=== PATIENT | female | born 1985 | race Two or more races ===

== ENCOUNTER 2016-06-15 10:28 | Emergency (ER) | payer SELFPAY ==
[~2016-06-15] VITALS: Ht 160 cm; Wt 86.2 kg
[2016-06-15 11:05] VITALS: BP 124/69
[2016-06-15] MEDS ORDERED: AMOX500C PO (11:47)
[2016-06-15] MEDS ORDERED: HYDR-971 PO (11:47)
--- NOTE | 2016-06-15 11:48 | PHYS DOC ---
Past Medical History Past Medical History: No Pertinent History Past Surgical History: Additional Information: 1 PACK/DAY Alcohol Use: None Drug Use: None Adult General Chief Complaint Chief Complaint: DENTAL PROBLEM HPI HPI Patient is a 30 year old female presents emergency department stating that she is having left lower dental pain for the last 3-4 days. She's been taken ibuprofen for pain and discomfort with minimal relief. She denies any fever, chills or any nausea vomiting. She denies any dentist. She does state that the pain radiates up into her left ear. She denies any difficulty with hearing. Review of Systems Review of Systems Constitutional: Denies fever or chills [] Eyes: Denies change in visual acuity, redness, or eye pain [] HENT: Denies nasal congestion or sore throat. Complaint of dental pain. Respiratory: Denies cough or shortness of breath [] Cardiovascular: No additional information not addressed in HPI [] GI: Denies abdominal pain, nausea, vomiting, bloody stools or diarrhea [] : Denies dysuria or hematuria [] Musculoskeletal: Denies back pain or joint pain [] Integument: Denies rash or skin lesions [] Neurologic: Denies headache, focal weakness or sensory changes [] Allergies Allergies Allergies Coded Allergies Type Severity Reaction Last Updated Verified No Known Drug Allergies 06/15/16 No Physical Exam Physical Exam Constitutional: Well developed, well nourished, no acute distress, non-toxic appearance. [] HENT: Normocephalic, atraumatic, bilateral external ears normal, oropharynx moist, no oral exudates, nose normal. Bilateral tympanic membranes appear to be normal. It with no erythematous or drainage noted. Patient was noted to have tenderness at the #19 or 20 tooth. Appears to have tenderness along the gumline which is very red and swollen. No drainage noted from the site. Eyes: PERRLA, EOMI, conjunctiva normal, no discharge. [] Neck: Normal range of motion, no tenderness, supple, no stridor. [] Cardiovascular:Heart rate regular rhythm, no murmur [] Lungs & Thorax: Bilateral breath sounds clear to auscultation [] Skin: Warm, dry, no erythema, no rash. [] Back: No tenderness Extremities: No tenderness, no cyanosis, no clubbing, ROM intact, no edema. [] Neurologic: Alert and oriented X 3, normal motor function, normal sensory function, no focal deficits noted. [] Psychologic: Affect normal, judgement normal, mood normal. [] Current Patient Data Vital Signs Vital Signs Date Time Temp Pulse Resp B/P Pulse Ox O2 Delivery O2 Flow Rate FiO2 06/15/16 11:05 98.1 63 18 98 Room Air 98.1 EKG EKG [] Radiology/Procedures Radiology/Procedures [] Course & Med Decision Making Course & Med Decision Making Pertinent Labs and Imaging studies reviewed. (See chart for details) Patient will be placed on amoxicillin 500 mg twice a day for the next 10 days. She was recommended to continue using ibuprofen. She'll be provided with [place] for the next 2 days. Patient was provided with signs and symptoms to return back to emergency department with a she'll also be encouraged to follow-up with a dentist in the next week. Patient agrees with discharge instructions treatment regimens and follow-up recommendations. Patient be discharged home in stable condition. [] Dragon Disclaimer Dragon Disclaimer This electronic medical record was generated, in whole or in part, using a voice recognition dictation system. Departure Departure Impression: Primary Impression: Pain, dental Additional Impression: Dental abscess Disposition: 01 HOME, SELF-CARE Condition: STABLE Referrals: UNKNOWN PCP NAME (PCP) Patient Instructions: Dental Abscess, Dental Pain, [id number] Additional Instructions: Activity as tolerated. Ibuprofen 800 mg every 8 hours. This medication with food as it may cause an upset stomach. If he developed upset stomach stopped taking. Hydrocodone will cause severe drowsiness do not take any be alert and oriented. Medications as prescribed. Followup with a dentist within the wound week. Return back to the emergency department sign symptoms become worse. Scripts Hydrocodone/Apap 5-325 ([place] 5-325 Tablet)1 Each Tablet1 Tab PO PRN Q6HRS PRN PAIN #6 TAB Prov:SHARONDA GRAY NP 06/15/16 Amoxicillin 500 Mg Capsule1 Cap PO BID #20 CAP Prov:SHARONDA GRAY [employer]IST[employer] 06/15/16 Problem Qualifiers SHARONDA GRAY NP Jun 15, 2016 11:47
== END 2016-06-15 12:00 | disposition home or self-care (01) ==
LOC: ER 10:28
DX: K04.7 Periapical abscess without sinus (principal); F17.200 Nicotine dependence, unspecified, uncomplicated
CPT/HCPCS: 99283